=== PATIENT | male | born 1965 | race African-American/Black ===

== ENCOUNTER 2020-10-24 13:39 | Emergency (ER) | payer SELFPAY ==
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
== END 2020-10-24 14:41 | disposition home or self-care (01) ==
LOC: MADERS 13:39
DX: S40.011A Contusion of right shoulder, initial encounter (principal); R51.9 Headache, unspecified; V49.50XA Passenger injured in collision with unspecified motor vehicles in traffic accident, initial encounter